=== PATIENT | female | born 1945 | race Caucasian/White ===

== ENCOUNTER 2023-03-11 05:39 | Outpatient (CLI) | payer MEDICARE ==
[~2023-03-11] VITALS: Ht 157.5 cm; Wt 74.3 kg
[2023-03-13] MEDS ORDERED: AMLO-250 PO (13:19)
[2023-03-13] MEDS ORDERED: ASPI-1238 PO (13:19)
[2023-03-13] MEDS ORDERED: VALS160T29 PO (13:19)
[2023-03-13] MEDS ORDERED: HYDR12.56 PO (13:19)
[2023-03-13] MEDS ORDERED: ISOS30TA82 PO (13:19)
[2023-03-13] MEDS ORDERED: ANAS1TAB50 PO (13:19)
[2023-03-13] MEDS ORDERED: ERGO1250 PO (13:19)
[2023-03-13] MEDS ORDERED: PANT40TA52 PO (13:19)
[2023-03-13] MEDS ORDERED: BUSP7.5T5 PO (13:19)
[2023-03-13] MEDS ORDERED: LISI1TAB46 PO (13:19)
[2023-03-13] MEDS ORDERED: ROSU40TA23 PO (13:19)
== END 2023-03-13 13:30 | disposition home or self-care (01) ==
LOC: PREOP 05:39
PROVIDERS: ATTEND Surgery
DX: Z01.818 Encounter for other preprocedural examination (principal)

== ENCOUNTER 2023-03-24 07:25 | Day surgery (SDC) | payer MEDICARE, OTHER ==
[~2023-03-24] VITALS: Ht 157.5 cm; Wt 74.3 kg
[~2023-03-24 07:25] MED LIST: AMLO-250 PO; ANAS1TAB50 PO; ASPI-1238 PO; BUSP7.5T5 PO; ERGO1250 PO; HYDR12.56 PO; ISOS30TA82 PO; LISI1TAB46 PO; PANT40TA52 PO; ROSU40TA23 PO; VALS160T29 PO
[2023-03-24] MEDS ORDERED: LACTATED RINGERS 1,000 ML 1,000 ML IV STA (07:44)
[2023-03-24] MEDS ORDERED: HURRICAINE EXT TUBE (BENZOCAINE) XX PRN (07:45)
[2023-03-24 08:00] VITALS: BP 172/63
--- NOTE | 2023-03-24 10:11 | Progress Note-Post Operative ---
Post-Operative Progess Note Surgeon (s)/Electrical Continuity Inspector (s) Surgeon CYNDY CARDENAS DO Electrical Continuity Inspector: n/a Pre-Operative Diagnosis HX OF HPYLORI/ALTERED BOWEL FUNCTION/EGD/COLONOSCOPY Post-Operative Diagnosis reflux esophagitis, melanosis coli, mucosal changes, sigmoid polyp Procedure & Operative Findings Date of Procedure 03/24/23 Procedure Performed/Findings EGD with biopsies, colonoscopy with cold biopsies and hot polypectomy x1 Anesthesia Type per MANAGER OF ADMINISTRATION Estimated Blood Loss Estimated blood loss (mL): none Specimens/Packing Specimens Removed antrum x1, GE junction x1, cecum biopsy x2, sigmoid polyp x1 CYNDY CARDENAS DO Mar 24, 2023 10:11
--- NOTE | 2023-03-24 10:13 | Discharge Inst-Simple/Standard ---
Discharge Inst-Standard Patient Instructions/Follow Up Plan of Care/Instructions/FU: 2-4 weeks brenda Activity as Tolerated: Yes Discharge Diet: Regular Diet CYDNY CARDENAS DO Mar 24, 2023 10:13
[2023-03-24 10:15] VITALS: BP 135/57
[2023-03-24 10:20] VITALS: BP 135/61
[2023-03-24 10:30] VITALS: BP 135/61
[2023-03-24 10:37] VITALS: BP 135/61
--- NOTE | 2023-03-24 13:09 | Anesthesia-General Post-Op ---
MAC Patient Condition Mental Status/LOC: Same as Preop Cardiovascular: Satisfactory Nausea/Vomiting: Absent Respiratory: Satisfactory Pain: Controlled Complications: Absent Post Op Complications Complications None Follow Up Care/Instructions Patient Instructions None needed. Anesthesiology Discharge Order Discharge Order Patient is doing well, no complaints, stable vital signs, no apparent adverse anesthesia problems. No complications reported per nursing. JENNA SOOD CRNA Mar 24, 2023 13:09
--- NOTE | 2023-03-24 17:24 | OPERATIVE REPORT ---
DATE OF SERVICE: 03/24/2023 PREOPERATIVE DIAGNOSES: History of H. pylori and altered bowel function. POSTOPERATIVE DIAGNOSES: Reflux esophagitis, melanosis coli, mucosal changes of the cecum and sigmoid colon polyp. PROCEDURES: EGD with biopsies, colonoscopy with cold biopsies and hot biopsy polypectomy x1. SURGEON: Cyndy Baker DO ANESTHESIA: Per BRANCH MECHANIC. ESTIMATED BLOOD LOSS: None. COMPLICATIONS: None. INDICATIONS: The patient is a 77-year-old female with altered bowel function. She also has a history of H. pylori. She understands risks and benefits of procedure and wished to proceed. Consent was signed in chart. DESCRIPTION OF PROCEDURE: The patient was taken to endoscopy suite, placed in left lateral recumbent position. Timeout was performed. Scope was inserted in the mouth, down the esophagus, stomach and into the duodenum without difficulty. No polyps, masses or ulcerations within the duodenum. Scope was slowly retracted back into the stomach where it was further insufflated. No polyps, masses or ulcerations. Slight erythematous changes. Biopsy of the antrum was obtained. Scope was retroflexed noting no other pathology. Scope was returned to its normal position, slowly withdrawn until distal esophagus. Some changes reflux esophagitis present. Biopsy of GE junction was obtained. Scope was slowly retracted back until completely removed. Digital rectal exam was performed. No palpable polyps, masses or ulcerations. Scope was inserted in the rectum and advanced all the way to the cecum with minimal difficulty. Prep was adequate. Changes of melanosis coli throughout the colon. Some mucosal changes predominantly in the cecum and the ascending colon, cold biopsies were obtained. Scope was slowly retracted back. No polyps, masses or ulcerations in the cecum, ascending, transverse, descending colon. Small polyp in the sigmoid colon, which hot biopsy polypectomy was performed. Scope was then continuously retracted back into the rectum where it was also retroflexed noting no other pathology. Scope was returned to its normal position, slowly withdrawn until completely removed. The patient tolerated the procedure well without complications, taken to recovery room in stable condition. RECOMMENDATIONS: The patient will need repeat colonoscopy in 5 years if benefits outweigh the risk due to age. If has any issues before that, be seen at that time. We will continue on Protonix and await biopsy results to see how her symptoms are doing. Job ID: [id number] DocumentID: [id number] Dictated Date: 03/24/2023 10:12:27 Rope Coiling Machine Operator Date: 03/24/2023 17:23:00 Dictated By: CYNDY ABKER DO
== END 2023-03-24 10:47 | disposition home or self-care (01) ==
LOC: ENDO 07:25
PROVIDERS: ATTEND Surgery
DX: K21.00 Gastro-esophageal reflux disease with esophagitis, without bleeding (principal); D12.5 Benign neoplasm of sigmoid colon; K63.89 Other specified diseases of intestine; R19.4 Change in bowel habit; Z87.891 Personal history of nicotine dependence; Z79.01 Long term (current) use of anticoagulants; Z85.3 Personal history of malignant neoplasm of breast
CPT/HCPCS: 43239; 45380; 45384; G0416; 88305